=== PATIENT | male | born 1970 | race Caucasian/White ===

== ENCOUNTER 2018-05-10 08:46 | Emergency (ER) | payer MEDICAID ==
[~2018-05-10] VITALS: Ht 167.6 cm; Wt 125.2 kg
[2018-05-10 09:09] VITALS: BP 151/101
--- NOTE | 2018-05-10 09:30 | NUR ---
47/M BIB SELF, C/O OF EPIGASTRIC PAIN X2 MONTHS. PATIENT STATES PAIN COME PRIOR TO A BOWEL MOVEMENT, PRESSURE IN UPPER MEDIAL ABDOMEN, FEELS RELIEF WITH BOWEL MOVEMENT, [id number]. NAUSEA, DENIES VOMITING, FEVERS, OR DIARRHEA. PATIENT DENIES CP, SOB AT THIS TIME, BUT WITH PAIN EPISODES FEELS SOB. PATIENT IS PALE, WARM, AND DRY. HX OF HEART RYTHM IRREGULARITES PATIENT STATES CORRECTED WITH PROCEDURE. PATIENT CANNOT RECALL CONDITION. AOX4, CLEAR SPEECH, STEADY GAIT.
--- NOTE | 2018-05-10 10:40 | NUR ---
lab at bedside, EKG at bedside
--- NOTE | 2018-05-10 10:47 | NUR ---
ultrasound at bedside
[2018-05-10 10:50] LABS: BASOPHILS % (AUTO) 0.4 % (0.0-2.0); EOSINOPHILS # (AUTO) 0.1 K/uL (0-0.4); EOSINOPHILS % (AUTO) 1.3 % (0.0-4.0); HEMATOCRIT 49.8 % (36-52); LYMPHOCYTES # (AUTO) 2.3 K/uL (2.0-11.5); LYMPHOCYTES % (AUTO) 21.2 % (20.5-51.1); MEAN CORPUSCULAR HEMOGLOBIN 28 pg (27-31); MEAN CORPUSCULAR HGB CONC 32 g/dL (33-37); MEAN CORPUSCULAR VOLUME 87.9 fL (80-94); MONOCYTES # (AUTO) 0.8 K/uL (0.8-1.0); MONOCYTES % (AUTO) 6.9 % (1.7-9.3); NEUTROPHILS # (AUTO) 7.7 K/uL (1.8-7.7); NEUTROPHILS % (AUTO) 70.2 % (42.2-75.2); PLATELET COUNT (AUTO) 231 K/uL (140-450); RED BLOOD CELL COUNT(AUTO) 5.67 MIL/uL (4.20-6.10); RED CELL DISTRIBUTION WIDTH 13.2 % (11.6-13.7)
[2018-05-10 11:03] LABS: ALBUMIN 3.5 g/dL (3.4-5.0); ANION GAP 6.9 (8-16); CARBON DIOXIDE 35.2 mmol/L (21-32); CREATININE 0.8 mg/dL (0.7-1.3); POTASSIUM 4.1 mmol/L (3.5-5.1); TOTAL BILIRUBIN 0.2 mg/dL (0.0-1.0)
[2018-05-10] MEDS ORDERED: NACL 0.9% 1,000 ML IV ONE (11:50)
[2018-05-10] MEDS ORDERED: KETOROLAC 30 MG/ML VIAL IVP ONE (11:55)
[2018-05-10] MEDS ORDERED: INSULIN REGULAR, HUMAN 100 UNIT/ML VIAL IV ONE (11:55)
[2018-05-10] MEDS ORDERED: ONDANSETRON 4 MG/2 ML VIAL IVP ONE (11:55)
[2018-05-10] MEDS ORDERED: PANTOPRAZOLE 40 MG INJ VIAL IVP ONE (11:55)
[2018-05-10 13:45] VITALS: BP 134/78
--- NOTE | 2018-05-10 13:45 | NUR ---
Patient discharged with v/s stable. Written and verbal after care instructions given and explained. Patient alert, oriented and verbalized understanding of instructions. Ambulatory with steady gait. All questions addressed prior to discharge. ID band removed. Patient advised to follow up with PMD. Rx of OMEPRAZOLE 40MG AND ZOFRAN 4MG ODT given. Patient educated on indication of medication including possible reaction and side effects. Opportunity to ask questions provided and answered.
== END 2018-05-10 13:45 | disposition home or self-care (01) ==
LOC: MED 08:46
DX: K29.70 Gastritis, unspecified, without bleeding (principal); E11.9 Type 2 diabetes mellitus without complications; L72.3 Sebaceous cyst; I10 Essential (primary) hypertension
CPT/HCPCS: 36415; 76705; 80053; 81002; 82948; 83690; 85025; 93005; 96361; 96372; 96374; 96375; 99284; C9113; J1815; J1885; J2405; J7030; Q0092